=== PATIENT | male | born 1960 | race Native Hawaiian/Other Pacific Islander ===

== ENCOUNTER 2017-04-24 13:35 | Emergency (ER) | payer OTHER ==
[~2017-04-24] VITALS: Ht 177.8 cm; Wt 68.0 kg
[2017-04-24 14:28] LABS: PLATELET COUNT 222 K/uL (142-355)
[2017-04-24 14:37] LABS: SODIUM 134 mmol/L (136-145)
[2017-04-24 15:10] VITALS: BP 110/85; TEMP 97.7
== END 2017-04-24 15:10 | disposition home or self-care (01) ==
LOC: ED 13:35
PROVIDERS: Emergency Medicine
DX: K29.70 Gastritis, unspecified, without bleeding (principal); K21.9 Gastro-esophageal reflux disease without esophagitis
CPT/HCPCS: 36415; 80053; 80307; 81000; 82150; 83690; 85027; 99283

== ENCOUNTER 2017-07-18 07:34 | Day surgery (SDC) | payer OTHER ==
[2017-07-18 08:31] LABS: PLATELET COUNT 228 K/uL (142-355)
[2017-07-18 08:39] LABS: POTASSIUM 4.1 mmol/L (3.6-5.2)
== END 2017-07-18 11:05 | disposition home or self-care (01) ==
LOC: OR 07:34
PROVIDERS: Student in an Organized Health Care Education/Training Program
PROC: 0DB68ZZ Excision of Stomach, Via Natural or Artificial Opening Endoscopic (ICD-10-PCS; principal; 2017-07-18)
DX: K29.50 Unspecified chronic gastritis without bleeding (principal); B96.81 Helicobacter pylori [H. pylori] as the cause of diseases classified elsewhere; K44.9 Diaphragmatic hernia without obstruction or gangrene; K25.9 Gastric ulcer, unspecified as acute or chronic, without hemorrhage or perforation; R10.13 Epigastric pain; Z98.890 Other specified postprocedural states
CPT/HCPCS: 80053; 85027; J2001; J2250; J2704; J3010

== ENCOUNTER 2017-08-02 09:54 | Outpatient (CLI) | payer OTHER | END 2017-08-02 20:26 | disposition home or self-care (01) | LOC: RAD 09:54 | DX: R13.19 Other dysphagia (principal) ==

== ENCOUNTER 2018-09-18 07:46 | Day surgery (SDC) | payer OTHER ==
[2018-09-18 08:28] LABS: PLATELET COUNT 197 K/uL (142-355)
[2018-09-18 08:48] LABS: POTASSIUM 4.6 mmol/L (3.6-5.2)
== END 2018-09-18 13:06 | disposition home or self-care (01) ==
LOC: OR 07:46
PROVIDERS: Student in an Organized Health Care Education/Training Program
PROC: 0YU50JZ Supplement Right Inguinal Region with Synthetic Substitute, Open Approach (ICD-10-PCS; principal; 2018-09-18)
PROC: 0VBF0ZZ Excision of Right Spermatic Cord, Open Approach (ICD-10-PCS; 2018-09-18)
DX: K40.90 Unilateral inguinal hernia, without obstruction or gangrene, not specified as recurrent (principal)
CPT/HCPCS: 80053; 85027; C1729; C1781; J0132; J0330; J0690; J1170; J2001; J2250; J2405; J2704; J2710; J3010; J3490

== ENCOUNTER → 2020-06-29 | Outpatient (CLI) | payer OTHER | LOC: INF 13:25 | PROVIDERS: ATTEND Internal Medicine | DX: Z23 Encounter for immunization (principal) | CPT/HCPCS: 96372 ==

== ENCOUNTER 2020-07-23 14:28 | Outpatient (CLI) | payer OTHER | END 2020-07-23 23:59 | disposition home or self-care (01) | LOC: INF 14:28 | PROVIDERS: ATTEND Internal Medicine | DX: Z23 Encounter for immunization (principal) | CPT/HCPCS: 96372 ==

== ENCOUNTER 2021-10-18 09:16 | Outpatient (CLI) | payer OTHER | END 2021-10-18 19:48 | disposition home or self-care (01) | LOC: RAD 09:16 | PROVIDERS: ATTEND Nurse Practitioner Family | DX: M79.671 Pain in right foot (principal) ==